=== PATIENT | female | born 1990 ===

== ENCOUNTER 2017-11-20 05:09 | Inpatient (IN) | payer MEDICAID ==
[~2017-11-20] VITALS: Ht 167.6 cm; Wt 93.4 kg
[2017-11-20] MEDS ORDERED: PROVENTIL/2.5 MG/3 M INH (05:40)
[2017-11-20 05:41] VITALS: BP 129/76; Ht 167.6 cm; Wt 93.4 kg
[2017-11-20] MEDS ORDERED: PRENATAL COMPLE1 TAB PO (05:41)
[2017-11-20 08:00] LABS: HEMOGLOBIN 11.2 g/dL (12-16); MCHC 33.9 g/dL (31.0-37.0); MCV 85.5 fL (80.0-100.0); MEAN PLATELET VOLUME 11.7 fL (7.4-10.4); RBC 3.86 10x6/uL (4.00-5.40); RDW 12.9 % (11.5-14.5); WBC 10.6 10x3/uL (4.8-10.8)
[2017-11-20 08:23] LABS: APPEARANCE SLT CLOUDY (CLEAR); BACTERIA MANY /hpf (NONE SEEN); BILIRUBIN NEGATIVE (NEGATIVE); COLOR YELLOW (YELLOW); GLUCOSE NEGATIVE (NEGATIVE); KETONE MODERATE mg/dL (NEGATIVE); MUCUS >1+ /lpf (NONE SEEN); NITRITE NEGATIVE (NEGATIVE); PROTEIN NEGATIVE (NEGATIVE); RED CELLS - URINE RARE /hpf (0-5); SPECIFIC GRAVITY 1.015 (1.005-1.020); UROBILINOGEN NORMAL (NORMAL)
[2017-11-20 14:12] LABS: BASOPHILS 0.2 % (0-2); EOSINOPHILS 1.5 % (0-7); HEMATOCRIT 32.8 % (36.0-48.0); HEMOGLOBIN 10.8 g/dL (12-16); IMMATURE GRANULOCYTES 0.2 % (0-5); MCH 28.3 pg (26.0-34.0); MCHC 32.9 g/dL (31.0-37.0); MCV 86.1 fL (80.0-100.0); MEAN PLATELET VOLUME 11.6 fL (7.4-10.4); MONOCYTES 3.7 % (2-11); NEUTROPHILS 82.4 % (40-80); PLATELET COUNT 166 10x3/uL (130-400); RBC 3.81 10x6/uL (4.00-5.40)
[2017-11-20 14:27] LABS: WBC 13.3 10x3/uL (4.8-10.8)
[2017-11-20 20:30] VITALS: BP 126/91
[2017-11-21 06:14] LABS: RAPID PLASMA REAGIN Non Reactive (Non Reactive)
[2017-11-21 06:16] LABS: BASOPHILS 0.4 % (0-2); EOSINOPHILS 2.8 % (0-7); HEMATOCRIT 30.5 % (36.0-48.0); IMMATURE GRANULOCYTES 0.3 % (0-5); LYMPHOCYTES 20.8 % (15-50); MCHC 32.8 g/dL (31.0-37.0); MCV 85.4 fL (80.0-100.0); MEAN PLATELET VOLUME 11.3 fL (7.4-10.4); MONOCYTES 6.7 % (2-11); PLATELET COUNT 158 10x3/uL (130-400); RBC 3.57 10x6/uL (4.00-5.40); RDW 12.9 % (11.5-14.5); WBC 13.1 10x3/uL (4.8-10.8)
[2017-11-21 07:18] VITALS: BP 133/84
[2017-11-21] MEDS ORDERED: HYDROCODON-ACE1 EAC7 PO (13:49)
[2017-11-21] MEDS ORDERED: MOTRIN600 MG PO (13:50)
== END 2017-11-21 14:13 | disposition home or self-care (01) | DRG 775 ==
LOC: D.LD 05:09
PROVIDERS: Obstetrics & Gynecology
PROC: 10D07Z6 Extraction of Products of Conception, Vacuum, Via Natural or Artificial Opening (ICD-10-PCS; principal; 2017-11-20)
PROC: 10907ZC Drainage of Amniotic Fluid, Therapeutic from Products of Conception, Via Natural or Artificial Opening (ICD-10-PCS; 2017-11-20)
DX: O43.193 Other malformation of placenta, third trimester (principal); Z3A.39 39 weeks gestation of pregnancy; Z37.0 Single live birth; O76 Abnormality in fetal heart rate and rhythm complicating labor and delivery